=== PATIENT | male | born 1940 | race Caucasian/White ===

== ENCOUNTER 2017-03-30 08:06 | Outpatient (RCR) | payer MEDICARE, OTHER | END 2017-06-28 | disposition home or self-care (01) | LOC: CARDREHAB | DX: Z48.812 Encounter for surgical aftercare following surgery on the circulatory system (principal); Z95.5 Presence of coronary angioplasty implant and graft ==

== ENCOUNTER 2021-06-07 16:22 | Emergency (ER) | payer MEDICARE, OTHER ==
[2021-06-07] MEDS ORDERED: HCTZ 25MG25 MG PO (16:33)
[2021-06-07] MEDS ORDERED: ELIQUIS5 MG PO (16:33)
[2021-06-07] MEDS ORDERED: NEURONTIN300 MG/CAP (16:33)
[2021-06-07] MEDS ORDERED: PROAIR HFA0.09 MG/AC IH (16:34)
[2021-06-07] MEDS ORDERED: ACETAMINOPHEN-H1 TA2 PO (16:34)
[2021-06-07] MEDS ORDERED: LEVOTHYROXINE112 MCG PO (16:34)
[2021-06-07] MEDS ORDERED: ATORVASTATIN CA80 MG PO (16:35)
[2021-06-07] MEDS ORDERED: CARBIDOPA/LEVODOPA PO (16:35)
[2021-06-07] MEDS ORDERED: METOPROLOL SUCC50 M1 PO (16:35)
[2021-06-07 17:47] VITALS: BP 129/74
== END 2021-06-07 17:48 | disposition home or self-care (01) ==
LOC: ED 16:22
DX: M79.605 Pain in left leg (principal); I10 Essential (primary) hypertension; E78.5 Hyperlipidemia, unspecified; E03.9 Hypothyroidism, unspecified; Z86.718 Personal history of other venous thrombosis and embolism; Z98.890 Other specified postprocedural states; Z79.890 Hormone replacement therapy; Z79.01 Long term (current) use of anticoagulants; Z79.899 Other long term (current) drug therapy

== ENCOUNTER → 2021-06-09 | Outpatient (CLI) | payer MEDICARE, OTHER ==
[~2021-06-09] MED LIST: ACETAMINOPHEN-H1 TA2 PO; ATORVASTATIN CA80 MG PO; CARBIDOPA/LEVODOPA PO; ELIQUIS5 MG PO; HCTZ 25MG25 MG PO; LEVOTHYROXINE112 MCG PO; METOPROLOL SUCC50 M1 PO; NEURONTIN300 MG/CAP; PROAIR HFA0.09 MG/AC IH
== END ==
LOC: RAD 13:57
DX: M79.89 Other specified soft tissue disorders (principal); Z86.718 Personal history of other venous thrombosis and embolism

== ENCOUNTER → 2021-06-30 | Outpatient (CLI) | payer MEDICARE, OTHER ==
[2021-06-30 17:14] LABS: POTASSIUM 3.5 mmol/L (3.5-5.1)
[2021-06-30 17:15] LABS: CALCIUM 9.3 mg/dL (8.3-10.5)
== END ==
LOC: LAB 16:50
PROVIDERS: Family Medicine
DX: R60.0 Localized edema (principal)

== ENCOUNTER 2021-07-13 19:46 | Emergency (ER) | payer MEDICARE, OTHER ==
[~2021-07-13] VITALS: Ht 180.3 cm; Wt 77.3 kg
[2021-07-13 20:42] LABS: BASO # 0.02 K/mm3 (0.02-0.10); EOS # 0.12 K/mm3 (0.04-0.40); EOS % 1.8 % (0.0-4.0); HEMATOCRIT 48.1 % (42.0-52.0); HEMOGLOBIN 15.7 g/dL (13.5-18.0); LYMPH# 1.75 K/mm3 (1.50-4.00); MEAN CELL VOLUME 93 fl (78-100); MEAN CORPUSCULAR HEMOGLOBIN 30 pg (27-31); MEAN CORPUSCULAR HGB CONC 33 g/dL (33-37); MEAN PLATELET VOLUME 9.1 fl (7.4-10.4); MONO # 0.54 K/mm3 (0.20-0.80); NEU # 4.25 K/mm3 (1.40-6.50); PLATELET COUNT 195 K/mm3 (130-400); RED BLOOD COUNT 5.17 M/mm3 (4.20-5.60); RED CELL DISTRIBUTION WIDTH 14.3 % (11.5-14.5); WHITE BLOOD COUNT 6.7 K/mm3 (4.8-10.8)
[2021-07-13 20:49] LABS: ALBUMIN 4.4 g/dL (3.4-4.8); POTASSIUM 3.9 mmol/L (3.5-5.1)
[2021-07-13 20:50] LABS: CALCIUM 9.6 mg/dL (8.3-10.5)
[2021-07-13 20:52] LABS: TOTAL PROTEIN 7.9 g/dL (6.2-8.1)
[2021-07-13 20:53] LABS: TOTAL BILIRUBIN 0.4 mg/dL (0.2-1.2)
[2021-07-13 21:48] LABS: URINE APPEARANCE HAZY; URINE BILIRUBIN NEGATIVE (NEGATIVE); URINE BLOOD NEGATIVE (NEGATIVE); URINE COLOR DK YELLOW; URINE GLUCOSE NEGATIVE (NEGATIVE); URINE KETONE NEGATIVE (NEGATIVE); URINE LEUKOCYTE ESTERASE NEGATIVE (NEGATIVE); URINE NITRATE NEGATIVE (NEGATIVE); URINE PROTEIN(semi-quant) TRACE mg/dL (NEGATIVE); URINE UROBILINOGEN NORMAL (NORMAL); URINE WBC 0-1 /hpf (0-3)
[2021-07-13 21:49] LABS: URINE MUCUS PRESENT (NOT PRESENT)
[2021-07-13 22:31] VITALS: BP 149/86
== END 2021-07-13 22:31 | disposition home or self-care (01) ==
LOC: ED 19:46
PROVIDERS: Physician Assistant
DX: R10.31 Right lower quadrant pain (principal); E03.9 Hypothyroidism, unspecified; I25.10 Atherosclerotic heart disease of native coronary artery without angina pectoris; Z79.01 Long term (current) use of anticoagulants; Z79.890 Hormone replacement therapy
CPT/HCPCS: Q9967

== ENCOUNTER → 2021-07-14 | Outpatient (CLI) | payer MEDICARE, OTHER | LOC: RAD 07-01 10:00 → VAS 13:21 → RAD 13:21 | DX: R10.2 Pelvic and perineal pain (principal) ==

== ENCOUNTER → 2021-10-20 | Outpatient (CLI) | payer MEDICARE, OTHER ==
[2021-10-20 09:03] LABS: ALBUMIN 4.1 g/dL (3.4-4.8); POTASSIUM 3.9 mmol/L (3.5-5.1)
[2021-10-20 09:04] LABS: CALCIUM 9.4 mg/dL (8.3-10.5)
[2021-10-20 09:05] LABS: TOTAL PROTEIN 7.2 g/dL (6.2-8.1)
[2021-10-20 09:07] LABS: TOTAL BILIRUBIN 0.8 mg/dL (0.2-1.2)
== END ==
LOC: LAB 07:55
PROVIDERS: Family Medicine
DX: E07.9 Disorder of thyroid, unspecified (principal); I25.10 Atherosclerotic heart disease of native coronary artery without angina pectoris; R79.89 Other specified abnormal findings of blood chemistry

== ENCOUNTER → 2021-11-24 | Outpatient (CLI) | payer MEDICARE, OTHER ==
[2021-11-30 16:38] LABS: ESTRONE (E1) LEVEL 23 pg/mL (10-60)
== END ==
LOC: LAB 11:58
DX: E29.1 Testicular hypofunction (principal); E07.9 Disorder of thyroid, unspecified

== ENCOUNTER → 2021-12-22 | Outpatient (CLI) | payer MEDICARE, OTHER | LOC: RAD 13:32 | DX: I25.10 Atherosclerotic heart disease of native coronary artery without angina pectoris (principal); Z96.652 Presence of left artificial knee joint; Z87.39 Personal history of other diseases of the musculoskeletal system and connective tissue; Z86.718 Personal history of other venous thrombosis and embolism ==

== ENCOUNTER → 2021-12-27 | Outpatient (CLI) | payer MEDICARE, OTHER ==
[2021-12-27 08:57] LABS: HEMATOCRIT 49.6 % (42.0-52.0); HEMOGLOBIN 16.2 g/dL (13.5-18.0); MEAN PLATELET VOLUME 9.2 fl (7.4-10.4); RED BLOOD COUNT 5.3 M/mm3 (4.20-5.60); RED CELL DISTRIBUTION WIDTH 13.4 % (11.5-14.5); WHITE BLOOD COUNT 5.4 K/mm3 (4.8-10.8)
[2021-12-27 09:18] LABS: ALBUMIN 4.2 g/dL (3.4-4.8)
[2021-12-27 09:19] LABS: POTASSIUM 4.1 mmol/L (3.5-5.1)
[2021-12-27 09:20] LABS: CALCIUM 9.4 mg/dL (8.3-10.5)
[2021-12-27 09:21] LABS: TOTAL PROTEIN 7.4 g/dL (6.2-8.1)
[2021-12-27 09:23] LABS: TOTAL BILIRUBIN 0.5 mg/dL (0.2-1.2)
[2021-12-27 13:05] LABS: URINE APPEARANCE CLEAR; URINE BILIRUBIN NEGATIVE (NEGATIVE); URINE BLOOD NEGATIVE (NEGATIVE); URINE COLOR YELLOW; URINE GLUCOSE NEGATIVE (NEGATIVE); URINE KETONE NEGATIVE (NEGATIVE); URINE LEUKOCYTE ESTERASE NEGATIVE (NEGATIVE); URINE NITRATE NEGATIVE (NEGATIVE); URINE PROTEIN(semi-quant) NEGATIVE (NEGATIVE); URINE UROBILINOGEN NORMAL (NORMAL)
[2021-12-27 13:33] LABS: URINE MUCUS PRESENT (NOT PRESENT)
== END ==
LOC: LAB 07:57
PROVIDERS: Orthopaedic Surgery
DX: E07.9 Disorder of thyroid, unspecified (principal); Z98.890 Other specified postprocedural states

== ENCOUNTER → 2022-02-15 | Outpatient (CLI) | payer MEDICARE, OTHER | LOC: RAD 10:22 | DX: R07.89 Other chest pain (principal); R05.3 Chronic cough; Z95.0 Presence of cardiac pacemaker ==

== ENCOUNTER → 2022-02-28 | Outpatient (CLI) | payer MEDICARE, OTHER ==
[~2022-02-28] MED LIST changes: +ALBUTEROL2.5 MG/3 M IH; +ALFUZOSIN HYDRO10 MG PO; +CELECOXIB200 M1 PO; +OXCARBAZEPINE300 M1 PO
[2022-02-28 16:43] LABS: BASO # 0.01 K/mm3 (0.02-0.10); EOS % 1.5 % (0.0-4.0); HEMOGLOBIN 15.1 g/dL (13.5-18.0); LYMPH# 1.47 K/mm3 (1.50-4.00); MEAN CELL VOLUME 92 fl (78-100); MEAN CORPUSCULAR HEMOGLOBIN 31 pg (27-31); MEAN CORPUSCULAR HGB CONC 34 g/dL (33-37); MEAN PLATELET VOLUME 8.9 fl (7.4-10.4); MONO # 0.72 K/mm3 (0.20-0.80); NEU # 4.41 K/mm3 (1.40-6.50); PLATELET COUNT 186 K/mm3 (130-400); RED BLOOD COUNT 4.92 M/mm3 (4.20-5.60); RED CELL DISTRIBUTION WIDTH 13.6 % (11.5-14.5); WHITE BLOOD COUNT 6.7 K/mm3 (4.8-10.8)
[2022-02-28 17:49] LABS: ERYTHROCYTE SEDIMENTATION RATE 17 mm/hr (0-20)
[2022-03-01 17:47] LABS: T3 FREE 2.5 pg/mL (1.7-3.7)
== END ==
LOC: LAB 16:20
PROVIDERS: Family Medicine
DX: R53.83 Other fatigue (principal)

== ENCOUNTER 2022-03-05 13:28 | Emergency (ER) | payer MEDICARE, OTHER ==
[~2022-03-05 13:28] MED LIST changes: -ALBUTEROL2.5 MG/3 M IH; -ALFUZOSIN HYDRO10 MG PO; -CELECOXIB200 M1 PO; -OXCARBAZEPINE300 M1 PO
[2022-03-05] MEDS ORDERED: ALBUTEROL2.5 MG/3 M IH (13:47)
[2022-03-05] MEDS ORDERED: ALFUZOSIN HYDRO10 MG PO (13:47)
[2022-03-05] MEDS ORDERED: OXCARBAZEPINE300 M1 PO (13:48)
[2022-03-05] MEDS ORDERED: CELECOXIB200 M1 PO (13:48)
[2022-03-05 14:19] LABS: BASO # 0.02 K/mm3 (0.02-0.10); EOS # 0.12 K/mm3 (0.04-0.40); EOS % 1.8 % (0.0-4.0); HEMOGLOBIN 14.1 g/dL (13.5-18.0); LYMPH# 1.99 K/mm3 (1.50-4.00); MEAN CELL VOLUME 92 fl (78-100); MEAN CORPUSCULAR HEMOGLOBIN 31 pg (27-31); MEAN CORPUSCULAR HGB CONC 34 g/dL (33-37); MEAN PLATELET VOLUME 9.2 fl (7.4-10.4); MONO # 0.76 K/mm3 (0.20-0.80); NEU # 3.89 K/mm3 (1.40-6.50); PLATELET COUNT 188 K/mm3 (130-400); RED BLOOD COUNT 4.56 M/mm3 (4.20-5.60); RED CELL DISTRIBUTION WIDTH 13.4 % (11.5-14.5); WHITE BLOOD COUNT 6.8 K/mm3 (4.8-10.8)
[2022-03-05 14:31] LABS: POTASSIUM 3.5 mmol/L (3.5-5.1); SODIUM 142 mmol/L (136-145)
[2022-03-05 14:33] LABS: GLUCOSE 83 mg/dL (75-110)
[2022-03-05 14:35] LABS: CARBON DIOXIDE 26 mmol/L (23-31)
[2022-03-05 14:44] LABS: D-DIMER 2.64 mg/L FEU (0.15-0.50)
[2022-03-05 15:26] VITALS: BP 128/85
== END 2022-03-05 15:27 | disposition home or self-care (01) ==
LOC: ED 13:28
PROVIDERS: Family Medicine
DX: I82.4Z2 Acute embolism and thrombosis of unspecified deep veins of left distal lower extremity (principal); Z79.01 Long term (current) use of anticoagulants; Z28.310 Unvaccinated for COVID-19
CPT/HCPCS: J1650

== ENCOUNTER 2022-03-06 11:26 | Outpatient (RCR) | payer MEDICARE, OTHER ==
[~2022-03-06] VITALS: Ht 180.3 cm; Wt 82.8 kg
[~2022-03-06 11:26] MED LIST changes: +ALBUTEROL2.5 MG/3 M IH; +ALFUZOSIN HYDRO10 MG PO; +CELECOXIB200 M1 PO; +OXCARBAZEPINE300 M1 PO
[2022-03-06 11:49] VITALS: BP 133/79
== END 2022-03-13 | disposition home or self-care (01) ==
LOC: AMSURD
DX: M79.605 Pain in left leg (principal); M79.89 Other specified soft tissue disorders; Z86.718 Personal history of other venous thrombosis and embolism
CPT/HCPCS: J1650

== ENCOUNTER → 2022-03-07 | Outpatient (CLI) | payer MEDICARE, OTHER | LOC: VAS 13:20 | DX: Z13.6 Encounter for screening for cardiovascular disorders (principal) ==

== ENCOUNTER → 2022-05-03 | Outpatient (CLI) | payer MEDICARE, OTHER | LOC: RAD 14:51 → MAMMO 15:15 | DX: Z13.820 Encounter for screening for osteoporosis (principal); S42.121D Displaced fracture of acromial process, right shoulder, subsequent encounter for fracture with routine healing; X58.XXXD Exposure to other specified factors, subsequent encounter ==

== ENCOUNTER → 2023-06-15 | Outpatient (CLI) | payer MEDICARE ==
[~2023-06-15] MED LIST changes: +ADULT ASPIRIN R81 MG PO
[2023-06-15 09:40] LABS: CALCIUM 9.4 mg/dL (8.3-10.5)
== END ==
LOC: LAB 09:13
PROVIDERS: Family Medicine
DX: I25.10 Atherosclerotic heart disease of native coronary artery without angina pectoris (principal); I10 Essential (primary) hypertension; G20.A1 Parkinson's disease without dyskinesia, without mention of fluctuations; E03.9 Hypothyroidism, unspecified; R73.03 Prediabetes

== ENCOUNTER → 2023-09-15 | Outpatient (CLI) | payer MEDICARE | LOC: LAB 09:37 | DX: E78.5 Hyperlipidemia, unspecified (principal); E03.9 Hypothyroidism, unspecified ==

== ENCOUNTER → 2023-12-14 | Outpatient (CLI) | payer MEDICARE ==
[2023-12-14 09:13] LABS: CALCIUM 9.6 mg/dL (8.3-10.5)
[2023-12-14 23:40] LABS: CREATININE OTHER SOURCE 141 mg/dL (47-110)
== END ==
LOC: LAB 08:49
PROVIDERS: Family Medicine
DX: I10 Essential (primary) hypertension (principal); E03.9 Hypothyroidism, unspecified

== ENCOUNTER 2024-03-24 12:33 | Emergency (ER) | payer MEDICARE ==
[~2024-03-24] VITALS: Ht 177.8 cm; Wt 86.0 kg
[~2024-03-24 12:33] MED LIST changes: +CARVEDILOL12.5 MG PO
[2024-03-24] MEDS ORDERED: Lidocaine 4% Topical Patch TP ONE (13:30)
[2024-03-24] MEDS ORDERED: LIDOCAINE1 EAC1 TP (14:46)
[2024-03-24 15:00] VITALS: BP 128/81
== END 2024-03-24 15:02 | disposition home or self-care (01) ==
LOC: ED 12:33
DX: M25.511 Pain in right shoulder (principal)

== ENCOUNTER → 2024-04-17 | Outpatient (CLI) | payer MEDICARE ==
[~2024-04-17] MED LIST changes: +LIDOCAINE1 EAC1 TP
[2024-04-17 14:52] LABS: BASO # 0.01 K/mm3 (0.02-0.10); EOS # 0.19 K/mm3 (0.04-0.40); EOS % 3.3 % (0.0-4.0); HEMATOCRIT 41.7 % (42.0-52.0); HEMOGLOBIN 13.8 g/dL (13.5-18.0); LYMPH# 1.67 K/mm3 (1.50-4.00); MEAN CELL VOLUME 93 fl (78-100); MEAN CORPUSCULAR HEMOGLOBIN 31 pg (27-31); MEAN CORPUSCULAR HGB CONC 33 g/dL (33-37); MONO # 0.69 K/mm3 (0.20-0.80); NEU # 3.25 K/mm3 (1.40-6.50); PLATELET COUNT 173 K/mm3 (130-400); RED BLOOD COUNT 4.49 M/mm3 (4.20-5.60); WHITE BLOOD COUNT 5.8 K/mm3 (4.8-10.8)
[2024-04-17 18:56] LABS: ALBUMIN 3.9 g/dL (3.4-4.8)
[2024-04-17 18:58] LABS: CALCIUM 9.5 mg/dL (8.3-10.5); TOTAL PROTEIN 6.6 g/dL (6.2-8.1)
[2024-04-17 18:59] LABS: TOTAL BILIRUBIN 0.7 mg/dL (0.2-1.2)
== END ==
LOC: AMSURD 14:39
PROVIDERS: Family Medicine
DX: Z01.818 Encounter for other preprocedural examination (principal); E03.4 Atrophy of thyroid (acquired)

== ENCOUNTER → 2024-04-22 | Outpatient (CLI) | payer MEDICARE | LOC: RAD 11:35 | DX: M19.011 Primary osteoarthritis, right shoulder (principal); M21.821 Other specified acquired deformities of right upper arm; Z96.611 Presence of right artificial shoulder joint ==

== ENCOUNTER → 2024-05-28 | Outpatient (CLI) | payer MEDICARE ==
[2024-05-28 16:14] LABS: BASO # 0.01 K/mm3 (0.02-0.10); EOS # 0.12 K/mm3 (0.04-0.40); EOS % 1.6 % (0.0-4.0); HEMATOCRIT 38.6 % (42.0-52.0); HEMOGLOBIN 12.7 g/dL (13.5-18.0); LYMPH# 1.74 K/mm3 (1.50-4.00); MEAN CELL VOLUME 94 fl (78-100); MEAN CORPUSCULAR HEMOGLOBIN 31 pg (27-31); MEAN CORPUSCULAR HGB CONC 33 g/dL (33-37); MEAN PLATELET VOLUME 9.2 fl (7.4-10.4); MONO # 0.89 K/mm3 (0.20-0.80); NEU # 4.69 K/mm3 (1.40-6.50); PLATELET COUNT 198 K/mm3 (130-400); RED BLOOD COUNT 4.11 M/mm3 (4.20-5.60); RED CELL DISTRIBUTION WIDTH 13.2 % (11.5-14.5); WHITE BLOOD COUNT 7.5 K/mm3 (4.8-10.8)
== END ==
LOC: LAB 15:53
PROVIDERS: Nurse Practitioner Family
DX: M25.469 Effusion, unspecified knee (principal)

== ENCOUNTER 2024-06-09 23:23 | Emergency (ER) | payer MEDICARE ==
[~2024-06-09] VITALS: Ht 177.8 cm; Wt 88.5 kg
[2024-06-09] MEDS ORDERED: methylPREDNISolone Sod Succ 125 MG/2 ML VIAL IV ONE (23:45)
[2024-06-09] MEDS ORDERED: Albuterol/Ipratropium 3 MG-0.5 MG/3 ML Neb Soln IH ONE (23:45)
[2024-06-10 00:25] LABS: EOS % 1.3 % (0.0-4.0); HEMATOCRIT 36.6 % (42.0-52.0); LYMPH# 1.23 K/mm3 (1.50-4.00); MEAN CELL VOLUME 95 fl (78-100); MEAN CORPUSCULAR HEMOGLOBIN 31 pg (27-31); MEAN CORPUSCULAR HGB CONC 33 g/dL (33-37); MEAN PLATELET VOLUME 9.1 fl (7.4-10.4); MONO # 0.78 K/mm3 (0.20-0.80); NEU # 5.65 K/mm3 (1.40-6.50); PLATELET COUNT 184 K/mm3 (130-400); RED BLOOD COUNT 3.84 M/mm3 (4.20-5.60); WHITE BLOOD COUNT 7.8 K/mm3 (4.8-10.8)
[2024-06-10 00:29] LABS: ALBUMIN 3.6 g/dL (3.4-4.8); SODIUM 141 mmol/L (136-145)
[2024-06-10 00:30] LABS: CALCIUM 8.7 mg/dL (8.3-10.5)
[2024-06-10] MEDS ORDERED: Doxycycline Monohydrate 100 MG CAP PO ONE (00:30)
[2024-06-10 00:32] LABS: GLUCOSE 138 mg/dL (75-110); TOTAL PROTEIN 6.2 g/dL (6.2-8.1)
[2024-06-10 00:33] LABS: CARBON DIOXIDE 22 mmol/L (23-31); TOTAL BILIRUBIN 0.3 mg/dL (0.2-1.2)
[2024-06-10 00:37] LABS: AST-SGOT 15 U/L (5-34)
[2024-06-10 00:39] LABS: ALT/SGPT 20 U/L (0-55)
[2024-06-10 00:45] LABS: TROPONIN-I < 0.030 ng/mL (0.00-0.033)
[2024-06-10] MEDS ORDERED: MORGIDOX 1X100100 MG PO (00:49)
[2024-06-10] MEDS ORDERED: PREDNISONE20 M1 PO (00:49)
[2024-06-10 00:50] VITALS: BP 116/70
== END 2024-06-10 00:50 | disposition home or self-care (01) ==
LOC: ED 23:23
PROVIDERS: Physician Assistant
DX: J20.9 Acute bronchitis, unspecified (principal); J18.9 Pneumonia, unspecified organism; Z79.82 Long term (current) use of aspirin
CPT/HCPCS: J2919

== ENCOUNTER → 2024-07-09 | Outpatient (CLI) | payer MEDICARE ==
[~2024-07-09] MED LIST changes: +MORGIDOX 1X100100 MG PO; +PREDNISONE20 M1 PO
== END ==
LOC: RAD 07:26
DX: K21.9 Gastro-esophageal reflux disease without esophagitis (principal)

== ENCOUNTER → 2024-09-12 | Outpatient (CLI) | payer MEDICARE | LOC: RAD 13:07 | DX: R07.81 Pleurodynia (principal) ==

== ENCOUNTER → 2024-10-01 | Outpatient (CLI) | payer MEDICARE | LOC: RAD 07:35 | DX: R13.12 Dysphagia, oropharyngeal phase (principal) ==

== ENCOUNTER → 2024-11-27 | Outpatient (CLI) | payer MEDICARE, MEDICAID | LOC: RAD 12:25 | DX: M16.12 Unilateral primary osteoarthritis, left hip (principal) ==